=== PATIENT | female | born 1965 | race Two or more races ===

== ENCOUNTER → 2025-04-23 | Emergency (ER) | payer OTHER ==
[~2025-04-23] VITALS: Ht 154.9 cm; Wt 64.4 kg
[~2025-04-23] MED LIST: 0.9 % SODIUM CHLORIDE 500 ML IV ONE; AMBIEN10 MG; ANALPRAM HC 2.530 GM RECTAL; FAMOTIDINE/PF 20 MG/2 ML VIAL IV ONE; FAMOTIDINE/PF 20 MG/2 ML VIAL ONE; HYOSCYAMINE SULFATE 0.125 MG TAB.SUBL ONE; HYOSCYAMINE SULFATE 0.125 MG TAB.SUBL SL ONE; INTESTINEX680 M1 PO; KETOROLAC TROMETHAMINE 30 MG VIAL IV ONE; KETOROLAC TROMETHAMINE 30 MG VIAL ONE; LEVSIN0.125 MG PO; ONDANSETRON HCL 2 MG/ML VIAL IV ONE; ONDANSETRON HCL 2 MG/ML VIAL ONE; ZYRTEC10 M3
[2025-04-23 18:22] LABS: BASO % 1.0 % (0.1-1.2); EOS # 0.18 (0.04-0.54); EOS % 1.9 % (0.7-7.0); LYMPH # 2.46 (1.18-3.74); LYMPH % 26.1 % (19.3-53.1); MEAN PLATELET VOLUME 11.20 fl (9.4-12.4); MONO # 0.62 (0.24-0.82); MONO % 6.6 % (4.7-12.5); NEUT # 6.06 (1.56-6.13); NEUT % 64.1 % (34.0-71.1); RED CELL DISTRIBUTION WIDTH 12.4 % (11.6-14.4)
[2025-04-23 18:33] LABS: URINE APPEARANCE Clear; URINE BILIRRUBIN Negative (NEGATIVE); URINE BLOOD Negative; URINE COLOR Dark Yellow; URINE GLUCOSE Negative (NEGATIVE); URINE KETONE Trace (NEGATIVE); URINE LEUKOCYTE Small; URINE NITRATE Negative; URINE PROTEIN Trace (NEGATIVE); URINE UROBILINOGEN 0.2 E.U./dl
[2025-04-23 18:38] LABS: URINE BACTERIA 5.7 uL (0.0-1933); URINE EPITHELIAL CELLS 5.0 uL (0.0-38.8); URINE RBC 11.4 uL (0.0-20.8)
[2025-04-23 18:57] LABS: INR 1.05
[2025-04-23 19:01] LABS: URINE CAST 0.70 uL (0.0-1.40); URINE WBC 1.6 uL (0.0-23.2)
[2025-04-23 19:09] LABS: ALT/SGPT 37.0 U/L (12-78); AST/SGOT 23.0 U/L (15-37); BILIRUBIN TOTAL 1.01 mg/dL (0.3-1.2); BUN CREA RATIO 14.0 (7.0-25.0); CREATININE SERUM 0.7 mg/dL (0.55-1.02); GFR 85.65; GLOBULINA 3.5 G/DL (2.4-3.5); GLUCOSE FASTING 99.0 mg/dL (65-100); OSMOLALITY SERUM 288.0 MOSM/KG (275-295)
== END | disposition home or self-care (01) ==
LOC: ER 17:05
PROVIDERS: General Practice
DX: K64.8 Other hemorrhoids (principal); R10.32 Left lower quadrant pain; K57.32 Diverticulitis of large intestine without perforation or abscess without bleeding; Z88.0 Allergy status to penicillin
CPT/HCPCS: 36415; 74177; 96365; 96366; 99284; J1885; J2405; J3490; J7042; Q9965